=== PATIENT | female | born 2005 | race Caucasian/White ===

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

== ENCOUNTER 2023-02-28 15:22 | Emergency (ER) | payer OTHER, SELFPAY ==
[2023-02-28 15:25] VITALS: BP 125/85; PULSE 90; RESP 20; TEMP 37.2; O2SAT 100
--- NOTE | 2023-02-28 16:17 | ED.GENADULT ---
HPI - General Adult General Chief complaint: Allergic Reaction Stated complaint: allergic reaction History of Present Illness HPI narrative: This is a pleasant 17-year-old female presenting for an allergic reaction. Patient is had a viral illness over the last week. She was seen in urgent care yesterday because of dizziness. She was prescribed meclizine and a steroid. Today she took the meclizine at 2 and around 230 she thought that she was having swelling sensation in her throat. She took a flashlight and looked in her bathroom mirror and saw that her uvula was touching her tongue and that made her worried. She did not have nausea vomiting diarrhea. She did not have any cutaneous findings, wheezing or lightheadedness. She says the feeling of throat closure stopped on its own and now she is asymptomatic. Patient was on antianxiety meds but weaned herself off of them 4-5 months ago has noticed that her anxiety has been getting significantly worse. Related Data Home Medications Medication Instructions Recorded Confirmed No Home Medications 07/17/19 02/28/23 Allergies Allergy/AdvReac Type Severity Reaction Status Date / Time No Known Allergies Allergy Verified 02/28/23 15:24 [facility] Past Medical History Medical History Anxiety Surgical History Surgical History S/P tonsillectomy and adenoidectomy Social History Social History Smoking status: Never smoker Alcohol intake: never Substance use: never Living arrangements: with family Exam Narrative: APPEARANCE: No apparent distress. Head: No swelling of the uvula lips or tongue. Tympanic membranes are normal. EYES: EOMI, NOSE: Atraumatic NECK: Trachea midline RESPIRATORY: No increased rate of breathing, CTAB CARDIOVASCULAR: RRR, ABDOMINAL: Non-distended MUSCULOSKELETAl: No obvious deformities NEURO: Alert. Moving 4/4 extremities, able to walk without difficulty SKIN:: Warm, dry. Normal color, No hives PSYCHIATRIC: Normal affect Course Vital Signs Vital signs: Vital Signs Temperature 99.0 F 02/28/23 15:25 Pulse Rate 90 02/28/23 15:25 Respiratory Rate 20 02/28/23 15:25 Blood Pressure 125/85 02/28/23 15:25 Pulse Oximetry 100 02/28/23 15:25 Oxygen Delivery Room Air 02/28/23 15:25 Temperature 99.0 F 02/28/23 15:25 Pulse Rate 90 02/28/23 15:25 Respiratory Rate 20 02/28/23 15:25 Blood Pressure 125/85 02/28/23 15:25 Pulse Oximetry 100 02/28/23 15:25 Oxygen Delivery Room Air 02/28/23 15:25 Medical Decision Making MDM Narrative Medical decision making narrative: -Course: 17-year-old female presenting with concerns for allergic reaction. No evidence of allergic reaction by time she arrived to the emergency department. No history of anaphylaxis. More likely to be anxiety/panic attack. Case was discussed at length with the patient and her mother. They are comfortable following up with her primary care physician on Wednesday. Discharged with return precautions. -DDX includes but is not limited to: Panic attack, anxiety, allergic reaction, anaphylaxis -Co-morbidities complicating care: anxiety -Shared decision making / Disposition: discharged Vital Signs Vital Signs: Vital Signs Temperature 99.0 F 02/28/23 15:25 Pulse Rate 90 02/28/23 15:25 Respiratory Rate 20 02/28/23 15:25 Blood Pressure 125/85 02/28/23 15:25 Pulse Oximetry 100 02/28/23 15:25 Oxygen Delivery Room Air 02/28/23 15:25 Temperature 99.0 F 02/28/23 15:25 Pulse Rate 90 02/28/23 15:25 Respiratory Rate 20 02/28/23 15:25 Blood Pressure 125/85 02/28/23 15:25 Pulse Oximetry 100 02/28/23 15:25 Oxygen Delivery Room Air 02/28/23 15:25 Discharge Plan Discharge Clinical Impression: Anxiety Patient Disposition
[2023-02-28 16:45] VITALS: BP 124/80; PULSE 86; RESP 20; TEMP 37.2; O2SAT 99
[2023-02-28 16:53] VITALS: BP 120/82; PULSE 88; RESP 17; TEMP 37.2; O2SAT 100
== END 2023-02-28 16:53 | disposition home or self-care (01) ==
PROVIDERS: Emergency Provider Emergency Medicine; PCP Internal Medicine Pulmonary Disease
DX: F41.9 Anxiety disorder, unspecified (principal)
CPT/HCPCS: 99281